=== PATIENT | male | born 1980 | race African-American/Black ===

== ENCOUNTER 2016-09-22 07:00 | Emergency (ER) | payer BC ==
[~2016-09-22] VITALS: Ht 177.8 cm; Wt 79.4 kg
--- NOTE | ~2016-09-22 | CT2 ---
[facility] A Service of [facility] & [facility] RADIOLOGY TEXT RESULTS PATIENT: BETY PECK LOCATION: [facility] : [birth year] UNIT #: [id number] AGE: [address]: Cadence Osman SEX: M ORDER DR: [id number] [facility] [address] [place], [place] [address] [id number] MR#: [id number] Acc #: [id number] NAME: BETY PECK : 1980 SEX: M STUDY DATE/TIME: 09/22/2016 09:42 UNIT: [facility] ROOM: STUDY DESCRIPTION: CT Abd and Pelv W Cont Attending Physician: Cadence Osman P.A.-C. Referring Physician: Primary Care Physician No Ordering Physician: Cadence Osman P.A.-C. Primary Care Physician: Primary Care Physician No MEDICAL IMAGING REPORT This report is preliminary unless electronic signature is present EXAM CT abdomen and pelvis with contrast, 09/22/2016 09:42 hours HISTORY 36-year-old man complaining of right-sided abdominal pain beginning last night. COMPARISON None TECHNIQUE Dynamic helical CT images were obtained from the lung bases through the pubic symphysis. Oral and intravenous contrast were administered. Isovue-370, 100 mL IV. Total exam DLP is 497 mGy-cm. This CT exam was performed with one or more of the following radiation dose reduction techniques: automatic exposure control, adjustment of mA and/or kV according to patient size, and iterative reconstruction. FINDINGS Images through the lung bases are clear. The distal esophagus is normal. Postcontrast images through the abdomen demonstrate a normal appearance to the liver, spleen, pancreas, gallbladder and bile ducts. The adrenal glands are normal. The kidneys enhance normally. There is no renal mass or intrarenal stone detected on these postcontrast images. There is no definite pelvocaliectasis or ureterectasis. However there is a stone measuring 2.0-3.0 mm at the right ureterovesical junction or just passed into the bladder. Correlate with any hematuria on urinalysis. The stomach is normal. Small bowel is unremarkable. The appendix is normal. The colon is opacified from the cecum to the splenic flexure without lesion. There are scattered diverticula of the distal descending STS. [facility] A Service of [facility] RADIOLOGY TEXT RESULTS PATIENT: BETY PECK LOCATION: [facility] : [birth year] UNIT #: [id number] AGE: [address]: Cadence Osman SEX: M ORDER DR: colon and sigmoid colon without thickening or inflammation. IMPRESSION 1. There is a 2.0-3.0 mm stone at the right ureterovesical junction or just passed into the bladder without significant pelvocaliectasis or ureterectasis. This is likely the source of the patient's pain, but may have passed into the bladder. Correlate with urinalysis for presence of hematuria. 2. Normal appearance to the gallbladder, bile ducts and pancreas. 3. Normal appendix. 4. Uncomplicated diverticula of the distal descending colon and sigmoid colon. STAT * RESULT Dictated by... Elizabeth Owens M.D. THIS IS AN ELECTRONICALLY VERIFIED REPORT Elizabeth Owens M.D. at 09/22/2016 2:37 PM Krishan TD: 09/22/2016 10:12 JOB #: [id number] MEDICAL IMAGING REPORT Page 1 of 1 COPY
[~2016-09-22 07:00] MED LIST: ANUSOL-HC21 GM PR; COLACE PO
[2016-09-22 07:42] LABS: URINE SOURCE CLEAN CATCH
[2016-09-22 07:49] LABS: URINE APPEARANCE CLEAR; URINE BILIRUBIN NEG (NEG); URINE BLOOD 2+ (NEG); URINE COLOR YELLOW; URINE GLUCOSE NORM (NORM); URINE KETONE NEG (NEG); URINE LEUKOCYTE ESTERASE NEG (NEG); URINE NITRATE NEG (NEG); URINE PROTEIN NEG (NEG); URINE SPECIFIC GRAVITY 1.015 (1.003-1.035); URINE UROBILINOGEN NORM (NORM)
[2016-09-22 07:52] LABS: URBCS1 AUWI 25-50 /[HPF] (0-2); URINE BACTERIA AUWI NEG (NEGATIVE); URINE SQUAMOUS EPITHELIAL CELL OCC /[HPF]; UWBCS1 AUWI 0-2 (0-5)
[2016-09-22 07:53] LABS: CULTURE INDICATED? NO
[2016-09-22 07:54] LABS: BASOPHIL% 0.8 % (0-2.5); EOSINOPHIL# 0.1 X10e3 (0-0.7); EOSINOPHIL% 2.1 % (0.0-7.0); HEMOGLOBIN 14.5 gm/dL (13.0-16.0); LYMPHOCYTE# 1.7 X10e3 (1.0-3.5); LYMPHOCYTE% 34.9 % (17.0-45.0); MEAN CELL VOLUME 70.1 FL (83-96); MEAN CORPUSCULAR HGB CONC 32.9 g/dL (30-36); MEAN PLATELET VOLUME 7.8 FL (6.5-11.5); MONOCYTE# 0.6 X10e3 (0-1.0); NEUTROPHIL# 2.5 X10e3 (1.5-7.1); NEUTROPHIL% 50.2 % (40-75); PLATELET COUNT 233 X10e3 (140-420); RED BLOOD COUNT 6.28 X10e (3.90-5.60); RED CELL DISTRIBUTION WIDTH 16.4 % (11.0-15.5)
[2016-09-22 07:56] LABS: DIFF IND NO
[2016-09-22 08:13] LABS: ALBUMIN SERUM 4.7 g/dL (3.5-5.0); BILIRUBIN, DIRECT 0.1 mg/dL (0.0-0.2); BILIRUBIN,INDIRECT 0.5 mg/dL (0.0-0.9); BILIRUBIN,TOTAL 0.6 mg/dL (0.2-2.0); CALCIUM SERUM 9.1 mg/dL (8.4-10.2); GLOM FILT RATE Estimated 112.5 mL/min (>60); POTASSIUM 3.5 mmol/L (3.5-5.1); PROTEIN TOTAL SERUM 7.5 g/dL (6.0-8.3)
== END 2016-09-22 10:32 | disposition home or self-care (01) ==
LOC: CED 07:00
PROVIDERS: Emergency Medicine
DX: N20.1 Calculus of ureter (principal); R03.0 Elevated blood-pressure reading, without diagnosis of hypertension; Z98.890 Other specified postprocedural states; Z79.899 Other long term (current) drug therapy
CPT/HCPCS: 36415; 74177; 80048; 80076; 81003; 82150; 83690; 85025; 96361; 96374; 96375; 99284; J1885; Q9967